=== PATIENT | male | born 1945 | race Caucasian/White ===

== ENCOUNTER → 2017-12-14 | Outpatient (CLI) | payer OTHER ==
[~2017-12-14] MED LIST: BENICAR20 MG; BENICAR20 MG PO; CHONDROITIN SU250 MG; FISH OIL 1,001000 M1; FISH OIL500 M1 PO; FISHOIL; GINKGO BILOBA40 M1 PO; GINKGO BILOBA500 MG; GLUCOSAMINE HC500 MG; HYDROCHLOROTHIA25 M1; HYDROCHLOROTHIA25 M1 PO; LAMISIL250 MG PO; LIPITOR80 MG PO; MOVANA300 MG; NORCO 5-325 TA1 EACH PO; NORFLEX100 MG PO; POTASSIUM; POTASSIUM-9999 MG PO; TOPROL XL25 MG PO; TOPROL XL50 MG; TRICOR145 MG; TRICOR145 MG PO; VITAMIN C100 M1 PO; VITAMIN D-32000 UNIT; VITAMINC500; VYTORIN 10-801 EACH
== END ==
LOC: NUC 07:27
DX: I25.810 Atherosclerosis of coronary artery bypass graft(s) without angina pectoris (principal); I10 Essential (primary) hypertension; E78.5 Hyperlipidemia, unspecified; E11.9 Type 2 diabetes mellitus without complications

== ENCOUNTER → 2018-09-27 | Outpatient (CLI) | payer OTHER ==
[~2018-09-27] MED LIST changes: +ASPIR 8181 MG PO; +COZAAR100 MG PO; +EFFIENT10 MG PO; +GLUCOPHAGE XR500 MG PO; -HYDROCHLOROTHIA25 M1; +PIOGLITAZONE15 MG PO; -TRICOR145 MG
== END ==
LOC: NUC 07:39
DX: I25.10 Atherosclerotic heart disease of native coronary artery without angina pectoris (principal); I10 Essential (primary) hypertension; E78.5 Hyperlipidemia, unspecified; I25.2 Old myocardial infarction; E11.9 Type 2 diabetes mellitus without complications; Z79.899 Other long term (current) drug therapy; Z88.8 Allergy status to other drugs, medicaments and biological substances; Z91.040 Latex allergy status

== ENCOUNTER → 2019-11-11 | Outpatient (CLI) | payer OTHER | LOC: NUC 08:03 | PROVIDERS: ATTEND Internal Medicine | DX: I25.799 Atherosclerosis of other coronary artery bypass graft(s) with unspecified angina pectoris (principal); Z95.5 Presence of coronary angioplasty implant and graft ==